=== PATIENT | female | born 1955 ===

== ENCOUNTER 2024-02-24 10:18 | Outpatient (CLI) | payer MEDICARE, MEDICAID | END 2024-02-24 10:19 | disposition home or self-care (01) | LOC: SCSMRI 10:18 | PROVIDERS: ATTEND Nurse Practitioner Pediatrics | DX: M47.22 Other spondylosis with radiculopathy, cervical region (principal); M48.02 Spinal stenosis, cervical region | CPT/HCPCS: 72141 ==

== ENCOUNTER 2024-10-19 07:09 | Outpatient (CLI) | payer MEDICARE, MEDICAID | END 2024-10-19 07:10 | disposition home or self-care (01) | LOC: SCSMRI 07:09 | PROVIDERS: ATTEND Specialist | DX: M47.26 Other spondylosis with radiculopathy, lumbar region (principal); M48.061 Spinal stenosis, lumbar region without neurogenic claudication; M48.07 Spinal stenosis, lumbosacral region; G96.191 Perineural cyst | CPT/HCPCS: 72148 ==